=== PATIENT | female | born 1995 | race Two or more races ===

== ENCOUNTER 2023-01-12 10:28 | Inpatient (IN) ==
[2023-01-12] MEDS ORDERED: THIAMINE HCL 200 MG in SODIUM CHLORIDE 0.9% 50 ML IV STA (10:37)
[2023-01-12] MEDS ORDERED: SODIUM CHLORIDE 0.9% 1000ML 1,000 ML IV SCH (10:45)
[2023-01-12] MEDS ORDERED: LORazepam 2 MG/1 ML VIAL IM STA (10:55)
[2023-01-12] MEDS ORDERED: HALOPERIDOL LACTATE 5 MG/ML 1 ML VIAL IM STA (10:55)
--- NOTE | 2023-01-12 11:00 | Emergency Department Note ---
Impression & Plan Psychosis, Acute paranoia, Chronic alcohol abuse, Abnormal LFTs ED Provider Note NAME: CHAYA MINOR AGE: 27 SEX: F : 1995 ARRIVES VIA: Ambulance INFORMANT: Patient, the guards from the [facility] ED PROVIDER(S): Gui Braxton DO CHIEF COMPLAINT: Altered mental status HPI: The patient is a 27-year-old female who presented to the emergency department for an evaluation of altered mental status. The patient is currently residing at the [facility] in [place]. History was very difficult to obtain. The patient reportedly was awake alert and oriented to person place and situation 2 days ago. She started to have a decline in her mental status especially over the last 24 hours. She now is not able to answer questions. The patient is difficult to obtain history from. We obtained history using the head batcher but the head batcher states that the patient is not answering questions appropriately. She appears to be responding to internal stimuli. The patient does answer some questions in Portuguese but I am unsure if she is answering these questions appropriately. ROS: See above HPI for pertinent positives & negatives. A total of 10 systems reviewed and were otherwise negative. PAST MEDICAL HISTORY: See Below PAST SURGICAL HISTORY: See Below FAMILY HISTORY: See Below SOCIAL HISTORY: See Below HOME MEDICATIONS: See Below ALLERGIES: See Below VITALS: See Below PHYSICAL EXAMINATION: GENERAL: The patient is awake and looking around the room. She is speaking in her koi language. She appears very anxious. EYES: The conjunctivae are clear. The pupils are round and reactive. EARS, NOSE, MOUTH AND THROAT: The nose is without any evidence of any deformity. NECK: The neck is nontender and supple. RESPIRATORY: Normal respiratory effort is noted there is no evidence of wheezing rhonchi or rales CARDIOVASCULAR: Regular rate and rhythm noted there no murmurs rubs or gallops normal S1 normal S2. GASTROINTESTINAL: The abdomen is soft. Abdomen is nontender. MUSCULOSKELETAL/EXTREMITIES: There is no evidence of gross deformity full range of motion is noted in the hips and shoulders. SKIN: There is no obvious evidence of any rash. There are no petechiae, pallor or cyanosis noted. NEUROLOGIC: Patient is awake and according to head batcher oriented to person place but not time. Strength is symmetric patellar reflexes are 2+ bilaterally PSYCH: The patient makes poor eye contact. Her affect is very animated. MEDICAL DECISION MAKING: The patient is a 27-year-old female who presented to the emergency department with guards from the [facility] retirement. The patient has been in there facility for the last few days. Initially she was awake alert and following commands well. Over the course last 24 hours the patient has become very disoriented. She speaks very little Portuguese. When she presented to the emergency department the head batcher line was used and the patient was still not making sense to the head batcher. The head batcher described her as paranoid and questioning as if she was going to be sexually or physically assaulted. I reevaluated the patient after she was treated for her anxiety. We attempted to medically clear the patient although given the patient's history of alcohol abuse it was unclear if this was more of a functional versus organic cause for her presentation today. The patient was reevaluated and appeared to be making much more sense. She was evaluated again by the head batcher line she seemed improved but not completely at her baseline. For this reason I discussed her condition with the on-call [facility] hospitalist. They will evaluate the patient in the emergency department for further management and disposition. Triage Nursing notes reviewed. Prior medical records reviewed Vital Signs: reviewed and remarkable for no significant abnormalities Differential diagnosis: Mood disorder, infection, hypoglycemia, electrolyte abnormalities, cardiac sources, intracerebral event, toxicologic, trauma, neurologic, as well as other pathologies. ER treatment provided: See below Diagnostics interpreted by me: ECG: Normal sinus rhythm at 78 bpm. There is no ectopy. There was no acute ST segment abnormalities noted. No previous tracing was available. Cardiac Monitoring: An order was placed for continuous cardiac monitoring. The monitor shows a rate of 72 bpm with sinus rhythm. Laboratory studies: As stated above and show below. Imaging studies: See below. Radiographic imaging was reviewed by myself Consultation(s): I discussed this case with Dr. Yu who is on-call for the [facility] group. Past Med/Surg History Social History (Updated 01/12/23 @ 15:47 by Gui Braxton DO) Smoking Status: Unknown if ever smoked Hx Alcohol Use: Yes Communication Tools: IPad Feels Safe at Home: Declines to Answer Allergies Allergies Allergy/AdvReac Type Severity Reaction Status Date / Time No Known Allergies Allergy Unverified 01/12/23 10:48 Home Meds Home Medications Medication Instructions Recorded Confirmed No Known Home Medications 01/12/23 01/12/23 Results & Data (ED) Vital Signs Vital Signs - 24 hr 01/12/23 10:53 01/12/23 10:53 01/12/23 12:25 Temperature 37.2 C Temperature Source Axillary Pulse Rate 112 H Pulse Rate [Apical] 74 Respiratory Rate 22 16 Respiratory Effort / Characteristics Non-Labored Respiratory Depth Normal Respiratory Pattern Regular Blood Pressure 122/96 Blood Pressure [Left Arm] 116/73 Blood Pressure Mean 104 Blood Pressure Mean [Left Arm] 87 Pulse Oximetry 98 98 100 Oxygen Delivery Method Room Air Room Air Room Air Sepsis Recent Fever Within 48 Hours No Sepsis New/Unexplained Change in Mental Status Yes Sepsis Action Taken by Nursing Physician Notified 01/12/23 12:39 Temperature Temperature Source Pulse Rate 72 Pulse Rate [Apical] Respiratory Rate Respiratory Effort / Characteristics Respiratory Depth Respiratory Pattern Blood Pressure Blood Pressure [Left Arm] Blood Pressure Mean Blood Pressure Mean [Left Arm] Pulse Oximetry Oxygen Delivery Method Sepsis Recent Fever Within 48 Hours Sepsis New/Unexplained Change in Mental Status Sepsis Action Taken by [facility] Medications Current Medication List: was personally reviewed by me Laboratory Data Attestation: I reviewed the patient's lab results. 01/12/23 11:41 01/12/23 11:41 Lab Results 01/12/23 01/12/23 01/12/23 Range/Units 11:19 11:41 11:41 WBC 8.73 (4.8-10.8) K/ul RBC 3.92 L (4.20-5.40) M/uL Hgb 12.9 (12.0-16.0) g/dl Hct 37.9 (37.0-47.0) % MCV 96.7 (80.0-100.0) fL MCH 32.9 (25.0-34.0) pg MCHC 34.0 (32.0-36.0) g/dL RDW Std Deviation 48.2 H (36.4-46.3) fL RDW Coeff of Clari 13.6 (11.5-14.5) % Plt Count 131 (130-400) K/uL MPV 10.5 (9.4-12.4) fL Immature Gran % (Auto) 0.6 % Neut % (Auto) 80.9 % Lymph % (Auto) 11.7 % [place] % (Auto) 5.4 % Eos % (Auto) 0.5 % Baso % (Auto) 0.9 % Neut # (Auto) 7.07 H (1.40-6.50) K/uL Lymph # (Auto) 1.02 L (1.2-3.4) K/uL [place] # (Auto) 0.47 (0.11-0.59) K/uL Eos # (Auto) 0.04 (0-0.50) K/uL Baso # (Auto) 0.08 (0-0.2) K/uL Immature Gran # (Auto) 0.05 (0.01-0.20) K/uL PT 11.3 (9.0-12.0) Seconds INR 1.0 (0.9-1.1) APTT 24.8 (21.0-31.0) Seconds PTT Ratio 0.9 VBG pH (7.36-7.41) VBG pCO2 (38-50) mmHg VBG pO2 mmHg VBG HCO3 mmol/L VBG O2 Saturation % VBG Base Excess mEq/L Sodium (136-145) mmol/L Potassium (3.5-5.1) mmol/L Chloride (98-107) mmol/L Carbon Dioxide (21-32) mmol/L Anion Gap (3-11) BUN (6-23) mg/dl Creatinine (0.6-1.2) mg/dl Est Cr Clr Drug Dosing Est GFR ( Amer) ml/min Est GFR (Non-Af Amer) ml/min BUN/Creatinine Ratio (10-20) Glucose (70-99(Fasting)) mg/dl Calcium (8.6-10.3) mg/dl Magnesium (1.7-2.4) mg/dl Total Bilirubin (0.2-1.0) mg/dl Direct Bilirubin (0-0.2) mg/dl AST (13-39) U/L ALT (7-52) U/L Alkaline Phosphatase (34-104) U/L Ammonia (18-72) umol/L Total Creatine Kinase (26-192) U/L Troponin I High Sens (0-14) pg/ml Total Protein (6.0-8.3) gm/dl Albumin (3.4-5.0) gm/dl Globulin (2.5-4.0) gm/dl Albumin/Globulin Ratio (0.9-2) Lipase (11-82) U/L HCG, Qual (Negative) Salicylates (3.0-30) mg/dl Acetaminophen (10-30) ug/ml Ethyl Alcohol mg/dL (<10.0) mg/dl SARS-CoV-2, RNA, NAAT NEGATIVE (NEGATIVE) 01/12/23 01/12/23 01/12/23 Range/Units 11:41 11:41 11:41 WBC (4.8-10.8) K/ul RBC (4.20-5.40) M/uL Hgb (12.0-16.0) g/dl Hct (37.0-47.0) % MCV (80.0-100.0) fL MCH (25.0-34.0) pg MCHC (32.0-36.0) g/dL RDW Std Deviation (36.4-46.3) fL RDW Coeff of Clari (11.5-14.5) % Plt Count (130-400) K/uL MPV (9.4-12.4) fL Immature Gran % (Auto) % Neut % (Auto) % Lymph % (Auto) % [place] % (Auto) % Eos % (Auto) % Baso % (Auto) % Neut # (Auto) (1.40-6.50) K/uL Lymph # (Auto) (1.2-3.4) K/uL [place] # (Auto) (0.11-0.59) K/uL Eos # (Auto) (0-0.50) K/uL Baso # (Auto) (0-0.2) K/uL Immature Gran # (Auto) (0.01-0.20) K/uL PT (9.0-12.0) Seconds INR (0.9-1.1) APTT (21.0-31.0) Seconds PTT Ratio VBG pH (7.36-7.41) VBG pCO2 (38-50) mmHg VBG pO2 mmHg VBG HCO3 mmol/L VBG O2 Saturation % VBG Base Excess mEq/L Sodium 137 (136-145) mmol/L Potassium 3.4 L (3.5-5.1) mmol/L Chloride 100 (98-107) mmol/L Carbon Dioxide 22 (21-32) mmol/L Anion Gap 15 H (3-11) BUN 11 (6-23) mg/dl Creatinine 0.54 L (0.6-1.2) mg/dl Est Cr Clr Drug Dosing Not Reportable Est GFR ( Amer) 147.8 ml/min Est GFR (Non-Af Amer) 127.5 ml/min BUN/Creatinine Ratio 20.4 H (10-20) Glucose 79 (70-99(Fasting)) mg/dl Calcium 10.4 H (8.6-10.3) mg/dl Magnesium 2.0 (1.7-2.4) mg/dl Total Bilirubin 1.4 H (0.2-1.0) mg/dl Direct Bilirubin 0.4 H (0-0.2) mg/dl AST 568 H (13-39) U/L ALT 239 H (7-52) U/L Alkaline Phosphatase 180 H (34-104) U/L Ammonia 40.0 (18-72) umol/L Total Creatine Kinase 220 H (26-192) U/L Troponin I High Sens 3.6 (0-14) pg/ml Total Protein 8.7 H (6.0-8.3) gm/dl Albumin 4.9 (3.4-5.0) gm/dl Globulin 3.8 (2.5-4.0) gm/dl Albumin/Globulin Ratio 1.3 (0.9-2) Lipase 18 (11-82) U/L HCG, Qual (Negative) Salicylates < 3.0 L (3.0-30) mg/dl Acetaminophen < 3 L (10-30) ug/ml Ethyl Alcohol mg/dL (<10.0) mg/dl SARS-CoV-2, RNA, NAAT (NEGATIVE) 01/12/23 01/12/23 01/12/23 Range/Units 11:41 11:41 11:41 WBC (4.8-10.8) K/ul RBC (4.20-5.40) M/uL Hgb (12.0-16.0) g/dl Hct (37.0-47.0) % MCV (80.0-100.0) fL MCH (25.0-34.0) pg MCHC (32.0-36.0) g/dL RDW Std Deviation (36.4-46.3) fL RDW Coeff of Clari (11.5-14.5) % Plt Count (130-400) K/uL MPV (9.4-12.4) fL Immature Gran % (Auto) % Neut % (Auto) % Lymph % (Auto) % [place] % (Auto) % Eos % (Auto) % Baso % (Auto) % Neut # (Auto) (1.40-6.50) K/uL Lymph # (Auto) (1.2-3.4) K/uL [place] # (Auto) (0.11-0.59) K/uL Eos # (Auto) (0-0.50) K/uL Baso # (Auto) (0-0.2) K/uL Immature Gran # (Auto) (0.01-0.20) K/uL PT (9.0-12.0) Seconds INR (0.9-1.1) APTT (21.0-31.0) Seconds PTT Ratio VBG pH 7.38 (7.36-7.41) VBG pCO2 39 (38-50) mmHg VBG pO2 36 mmHg VBG HCO3 23 mmol/L VBG O2 Saturation < 60.0 % VBG Base Excess -1.8 mEq/L Sodium (136-145) mmol/L Potassium (3.5-5.1) mmol/L Chloride (98-107) mmol/L Carbon Dioxide (21-32) mmol/L Anion Gap (3-11) BUN (6-23) mg/dl Creatinine (0.6-1.2) mg/dl Est Cr Clr Drug Dosing Est GFR ( Amer) ml/min Est GFR (Non-Af Amer) ml/min BUN/Creatinine Ratio (10-20) Glucose (70-99(Fasting)) mg/dl Calcium (8.6-10.3) mg/dl Magnesium (1.7-2.4) mg/dl Total Bilirubin (0.2-1.0) mg/dl Direct Bilirubin (0-0.2) mg/dl AST (13-39) U/L ALT (7-52) U/L Alkaline Phosphatase (34-104) U/L Ammonia (18-72) umol/L Total Creatine Kinase (26-192) U/L Troponin I High Sens (0-14) pg/ml Total Protein (6.0-8.3) gm/dl Albumin (3.4-5.0) gm/dl Globulin (2.5-4.0) gm/dl Albumin/Globulin Ratio (0.9-2) Lipase (11-82) U/L HCG, Qual Negative (Negative) Salicylates (3.0-30) mg/dl Acetaminophen (10-30) ug/ml Ethyl Alcohol mg/dL < 10.0 (<10.0) mg/dl SARS-CoV-2, RNA, NAAT (NEGATIVE) Administered Medications Discontinued Medications Haloperidol Lactate (Haloperidol Lactate 5 Mg/Ml 1 Ml Vial) 5 mg IM NOW STA Stop: 01/12/23 10:56 Last Admin: 01/12/23 11:06 Dose: 5 mg Documented By: PARUL Sodium Chloride (Nss 1000ml) 1,000 mls @ 999 mls/hr IV .Q1H1M MARYLU Stop: 01/12/23 11:45 Last Infusion: 01/12/23 13:20 Dose: 0 mls/hr Documented By: Admin: 01/12/23 12:10 Dose: 999 mls/hr Documented By: ANTHONY Thiamine HCl 200 mg/ Sodium (Chloride) 52 mls @ 210 mls/hr IV NOW STA Stop: 01/12/23 10:51 Last Infusion: 01/12/23 13:05 Dose: 0 mls/hr Documented By: Admin: 01/12/23 12:10 Dose: 210 mls/hr Documented By: ANTHONY Lorazepam (Lorazepam 2 Mg/1 Ml Vial) 1 mg IM NOW STA Stop: 01/12/23 10:56 Last Admin: 01/12/23 11:06 Dose: 1 mg Documented By: PARUL Imaging Data My Impression: 1 view chest x-ray was obtained in the emergency department. My interpretation is no free air, no definite infiltrate, final report below. Radiologist's Impression: Chest X-Ray 01/12/23 10:37 SINGLE VIEW CHEST CLINICAL HISTORY: Change in mental status. FINDINGS: An AP, portable, upright chest radiograph is obtained. No prior studies are available for comparison at the time of dictation. The examination is degraded by portable technique and patient rotation. The cardiomediastinal silhouette is unremarkable. The lungs and pleural spaces are clear. No pneumothorax is seen. The bony thorax is grossly intact. IMPRESSION: No active disease in the chest. ACT 112: Negative or not required by law. Electronically signed by: Nigel Hadley M.D. 01/12/2023 1:[address] 01/12/23 10:37 CT head/brain wo con CLINICAL HISTORY: ams Technique: Contiguous axial CT images of the head were acquired from the base of the skull to the vertex without intravenous contrast administration. Images were viewed in brain, subdural and bone windows. Automated dose lowering techniques and/or adjustment according to patient size were utilized for this exam. Comparison: None available at the time of this dictation. Findings: The ventricles, basal cisterns, and cerebral sulci are normal. There is no acute intracranial hemorrhage or evidence of acute territorial infarction. Neither mass effect, shift of the midline structures, nor abnormal extra-axial fluid collections are shown. Imaged portions of the paranasal sinuses and mastoid air cells are clear. The orbits appear normal. Mild soft tissue prominence in the left occiput which may represent soft tissue contusion. Impression: No acute intracranial hemorrhage or skull fractures. Scalp swelling is seen in the left occiput. ACT 112: Negative or not required by law. Electronically signed by: Parish Cornelius M.D. 01/12/2023 12:16 PM Discharge Plan Visit Data Chief Complaint: Mental Health Evaluation Stated Complaint: HALLUCINATION, MHID, POSSIBLE ALCOHOL WITHDRAWL ED Provider: Gui Braxton Discharge Problem: Psychosis, Acute paranoia, Chronic alcohol abuse, Abnormal LFTs Patient Disposition: Being Evaluated by Hospitalist Forms Stand Alone Forms: [facility], Suicide Prevention Resources Prescriptions Prescriptions: No Action No Known Home Medications Referrals Referrals: PCP,NO [Primary Care Provider] -
[2023-01-12 11:57] LABS: Base Excess VBG -1.8 mEq/L; HCO3 VBG 23 mmol/L; Oxygen Saturation VBG < 60.0 %; PCO2 VBG 39 mmHg (38-50); PO2 VBG 36 mmHg; pH VBG 7.38 (7.36-7.41)
[2023-01-12 12:07] LABS: Basophils # (auto) 0.08 K/uL (0-0.2); Basophils % (auto) 0.9 %; Eosinophils # (auto) 0.04 K/uL (0-0.50); Eosinophils % (auto) 0.5 %; Hematocrit (blood only) 37.9 % (37.0-47.0); Hemoglobin 12.9 g/dl (12.0-16.0); Immature Granulocytes # (auto) 0.05 K/uL (0.01-0.20); Immature Granulocytes % (auto) 0.6 %; Lymphocytes # (auto) 1.02 K/uL (1.2-3.4); Lymphocytes % (auto) 11.7 %; Mean Corpuscular Hemoglobin 32.9 pg (25.0-34.0); Mean Corpuscular Volume 96.7 fL (80.0-100.0); Mean Platelet Volume 10.5 fL (9.4-12.4); Monocytes # (auto) 0.47 K/uL (0.11-0.59); Monocytes % (auto) 5.4 %; Neutrophils # (auto) 7.07 K/uL (1.40-6.50); Neutrophils % (auto) 80.9 %; Platelet Count 131 K/uL (130-400); RDW Coefficient of Variation 13.6 % (11.5-14.5); RDW Standard Deviation 48.2 fL (36.4-46.3); Red Blood Count 3.92 M/uL (4.20-5.40); White Blood Count 8.73 K/ul (4.8-10.8)
[2023-01-12 12:11] LABS: Albumin Level 4.9 gm/dl (3.4-5.0); Anion Gap 15 (3-11); Bilirubin Direct 0.4 mg/dl (0-0.2); Bilirubin,Total 1.4 mg/dl (0.2-1.0); Calcium 10.4 mg/dl (8.6-10.3); Carbon Dioxide 22 mmol/L (21-32); Chloride 100 mmol/L (98-107); Potassium 3.4 mmol/L (3.5-5.1); Sodium 137 mmol/L (136-145)
[2023-01-12 12:17] LABS: Acetaminophen < 3 ug/ml (10-30); Alanine Aminotransferase 239 U/L (7-52); Albumin Globulin Ratio 1.3 (0.9-2); Alkaline Phosphatase 180 U/L (34-104); Aspartate Aminotransferase 568 U/L (13-39); BUN Creatinine Ratio 20.4 (10-20); Blood Urea Nitrogen 11 mg/dl (6-23); Creatine Kinase 220 U/L (26-192); Est GFR (African American) 147.8 ml/min; Est GFR (Non-African American) 127.5 ml/min; Globulin 3.8 gm/dl (2.5-4.0); Glucose 79 mg/dl (70-99(Fasting)); Lipase 18 U/L (11-82); Salicylate < 3.0 mg/dl (3.0-30); Total Protein 8.7 gm/dl (6.0-8.3)
--- NOTE | 2023-01-12 12:17 | CT Scan Report ---
CT head/brain wo con CLINICAL HISTORY: ams Technique: Contiguous axial CT images of the head were acquired from the base of the skull to the jeff kirk without intravenous contrast administration. Images were viewed in brain, subdural and bone [facility]. Automated dose lowering techniques and/or adjustment according to patient size were utilized for this exam. Comparison: None available at the time of this dictation. Findings: The ventricles, basal cisterns, and cerebral sulci are normal. There is no acute intracranial hemorrh age or evidence of acute territorial infarction. Neither mass effect, shift of the midline structures , nor abnormal extra-axial fluid collections are shown. Imaged portions of the paranasal sinuses and mastoid air cells are clear. The orbits appear normal. Mild soft tissue prominence in the left occiput which may represent soft tissue contusion. Impression: No acute intracranial hemorrhage or skull fractures. Scalp swelling is seen in the left occiput. ACT 112: Negative or not required by law. Electronically signed by: Parish Cornelius M.D. 01/12/2023 12:16 PM
[2023-01-12 12:31] LABS: Pregnancy Test, Serum Negative (Negative)
[2023-01-12 12:34] LABS: Partial Thromboplastin Ratio 0.9; Partial Thromboplastin Time 24.8 Seconds (21.0-31.0); Prothrombin Time 11.3 Seconds (9.0-12.0)
[2023-01-12 12:48] LABS: Troponin I High Sensitivity 3.6 pg/ml (0-14)
--- NOTE | 2023-01-12 13:18 | XRay Report ---
SINGLE VIEW CHEST CLINICAL HISTORY: Change in mental status. FINDINGS: An AP, portable, upright chest radiograph is obtained. No prior studies are available for c omparison at the time of dictation. The examination is degraded by portable technique and patient rot ation. The cardiomediastinal silhouette is unremarkable. The lungs and pleural spaces are clear. No p neumothorax is seen. The bony thorax is grossly intact. IMPRESSION: No active disease in the chest. ACT 112: Negative or not required by law. Electronically signed by: Nigel Hadley M.D. 01/12/2023 1:17 PM
[2023-01-12] MEDS ORDERED: Ativan IV Alcohol Withdrawal--Active Protocol IV PRN (15:46)
[2023-01-12] MEDS ORDERED: LORazepam 2 MG/1 ML VIAL IV PRN ×3 (15:46)
--- NOTE | 2023-01-12 15:53 | History & Physical Report ---
Date of Service January 12, 2023 Assessment & Plan (1) Altered mental status: Plan: altered mental status in a 27 yo female with limited knowm past medical history. Currently confused, Speaks German. Given history of alcoholism, [facility], however her vitals no not appear to be showing signs of alcohol withdrawalm as she is not tacyhcardic or febrile. She could have an underlying psychiatric illness. For now will treat for alcohol withdrawal, if no improvement with benzos, may consider consulting psych and starting on antipsychotic. Patient will have guards in room, so no need for one to one. will obtain inflammatory markers to assess for any possible infection. UDS. evelyn be on valium 10 mg q6h, may cut back by 50% on 01/13, this will need to be reordered on 01/13 Patient also has an anion gap metabolic acidosis, will obtain a vbg: this was normal. (2) Chronic alcohol abuse: Plan: LFTs appear to be consistent with alcohol intake (3) Abnormal LFTs: Plan: will recheck LFTs in am as above. History of Present Illness Chief Complaint: confusion Primary Care Provider: NO PCP 27 [facility] female [facility] [place] presents to the ER with altered mental status. Patient is a poor historian and speaks very limited Greenlandic. She is from [facility] and speaks German. Patient however with use of photo print specialist service was not making any sense as per the interpretor, however, it was noted that she drinks about 5 beers daily. The interpretor also noted that she appeared to be hallucinating. She was in the [facility] and for the past 2 days, she appeared to be in her regular state of healthj. However today, she was confused, and brought to the hospital. Allergies Allergy/AdvReac Type Severity Reaction Status Date / Time No Known Allergies Allergy Unverified 01/12/23 10:48 Home Medications Medication Instructions Recorded Confirmed Type No Known Home Medications 01/12/23 01/12/23 History Past Med/Surg History Social History Smoking Status: Unknown if ever smoked Hx Alcohol Use: Yes Hx Substance Use: No Preferred Language: Other Communication Ability: Effective Communication Tools: IPad Drama Therapist Required: Yes Beliefs That Will Affect Care: None Current Living Situation: Other Current Living Situation Comment: [facility] Other Information That Helps Us Care for You: No Feels Safe at Home: Declines to Answer Assistive Devices: Hospital Bed Review of Systems Review of Systems: Unobtainable due to cognitive status Physical Exam Constitutional: WD/WN, vitals as above Eyes: jaundiced sclera/ horizontal nystagmus, patient making circular movement with her eyes (possible torsional nystagmus) ENMT: external ear and nose normal, oropharynx normal Neck: trachea midline, no thyromegaly Respiratory: normal respiratory effort, lungs clear to auscultation Cardiovascular: RRR, no murmur, no edema Gastrointestinal (Abdomen): normal bowel sounds, soft, nontender, no hepatosplenomegaly Musculoskeletal: no cyanosis or clubbing, extremities motor strength 5/5 (difficult to examine as she has handcuffs, but does move all extremities) Skin: no rashes, warm and dry Neurologic: awake Psychiatric: Orientation: alert Lymphatic: no cervical or axillary lymphadenopathy Results & Data Results & Data Vital Signs (Past 12 Hours) Vital Signs Temp Pulse Pulse Resp BP BP Pulse Ox 01/12/23 12:39 72 01/12/23 12:25 74 16 116/73 100 01/12/23 10:53 98 01/12/23 10:53 37.2 C 112 H 22 122/96 98 O2 Del Method 01/12/23 12:39 01/12/23 12:25 Room Air 01/12/23 10:53 Room Air 01/12/23 10:53 Room Air PG Care Time/CCT Total # of Minutes Spent Total Time Spent with Patient: Total time spent is greater than 50% in coordination of care (as documented) at patient's floor/unit and/or counseling patient: Coding Level of Care Code 06878 INT INP/OBS CARE 3/75MIN Diagnoses Altered mental status R41.82 Chronic alcohol abuse F10.10 Abnormal LFTs R79.89
--- NOTE | 2023-01-12 17:08 | Electrocardiogram Report ---
Test Reason : Blood Pressure : / mmHG Vent. Rate : 078 BPM Atrial Rate : 078 BPM P-R Int : 150 ms QRS Dur : 080 ms QT Int : 438 ms P-R-T Axes : 056 081 066 degrees QTc Int : 499 ms Normal sinus rhythm with sinus arrhythmia Prolonged QT Abnormal ECG No previous ECGs available Confirmed by Eris Moss ([id number]) on 01/12/2023 5:07:58 PM Referred By: Confirmed By:Huy Moss
[2023-01-12] MEDS: LACTATED RINGER'S 1,000 ML IV SCH (17:37)
[2023-01-12] MEDS: DIAZEPAM IV SCH (17:38)
[2023-01-12 22:49] LABS: Base Excess VBG -3.6 mEq/L; HCO3 VBG 21 mmol/L; Oxygen Saturation VBG 92.9 %; PCO2 VBG 34 mmHg (38-50); PO2 VBG 66 mmHg; pH VBG 7.39 (7.36-7.41)
[2023-01-12 23:10] LABS: Anion Gap 13 (3-11); BUN Creatinine Ratio 15.9 (10-20); Blood Urea Nitrogen 7 mg/dl (6-23); Calcium 9.1 mg/dl (8.6-10.3); Carbon Dioxide 19 mmol/L (21-32); Chloride 106 mmol/L (98-107); Est GFR (African American) > 150.0 ml/min; Est GFR (Non-African American) 136.4 ml/min; Glucose 68 mg/dl (70-99(Fasting)); Potassium 3.3 mmol/L (3.5-5.1); Sodium 138 mmol/L (136-145)
[2023-01-13] MEDS: DIAZEPAM IV SCH ×3 (00:20→12:05)
[2023-01-13 00:38] LABS: Appearance Urine Cloudy (Clear); Bacteria Urine Automated 4+ (Negative); Bilirubin Urine Negative (Negative); Blood Urine Negative (Negative); Color Urine Orange; Glucose Urine UA Negative (Negative); Ketones Urine 3+ (Negative); Leukocyte Esterase Urine 1+ (Negative); Nitrite Urine Positive (Negative); Protein Urine 1+ (Negative); RBC Urine Automated 0-4 /hpf (0-4); Specific Gravity Urine 1.029 (1.000-1.030); Urobilinogen Urine Negative (Negative); WBC Urine Automated >30 /hpf (0-5)
[2023-01-13 01:00] LABS: Amphetamines+Metham, Urine Neg (Neg); Barbiturates, Urine Neg (Neg); Benzodiazepine, Urine Pos (Neg); Cocaine, Urine Neg (Neg); MDMA (Ecstacy), Urine Neg (Neg); Methadone, Urine Neg (Neg); Opiate, Urine Neg (Neg); Phencyclidine, Urine Neg (Neg)
[2023-01-13] MEDS: LACTATED RINGER'S 1,000 ML IV SCH (05:40)
[2023-01-13 07:01] LABS: Base Excess VBG -3.6 mEq/L; HCO3 VBG 22 mmol/L; Oxygen Saturation VBG 83.6 %; PCO2 VBG 38 mmHg (38-50); PO2 VBG 52 mmHg; pH VBG 7.36 (7.36-7.41)
[2023-01-13 07:08] LABS: Hematocrit (blood only) 36.3 % (37.0-47.0); Hemoglobin 12.1 g/dl (12.0-16.0); Mean Corpuscular Hemoglobin 33.2 pg (25.0-34.0); Mean Corpuscular Hgb Conc 33.3 g/dL (32.0-36.0); Mean Corpuscular Volume 99.5 fL (80.0-100.0); Mean Platelet Volume 10.7 fL (9.4-12.4); Platelet Count 111 K/uL (130-400); RDW Coefficient of Variation 13.6 % (11.5-14.5); Red Blood Count 3.65 M/uL (4.20-5.40); White Blood Count 5.35 K/ul (4.8-10.8)
[2023-01-13 07:25] LABS: Alanine Aminotransferase 224 U/L (7-52); Albumin Level 3.8 gm/dl (3.4-5.0); Alkaline Phosphatase 146 U/L (34-104); Anion Gap 12 (3-11); Aspartate Aminotransferase 476 U/L (13-39); BUN Creatinine Ratio 12.5 (10-20); Bilirubin Direct 0.3 mg/dl (0-0.2); Bilirubin,Total 1.4 mg/dl (0.2-1.0); Blood Urea Nitrogen 5 mg/dl (6-23); C Reactive Protein 1.18 mg/dl (0-0.5); Calcium 9.2 mg/dl (8.6-10.3); Carbon Dioxide 20 mmol/L (21-32); Chloride 106 mmol/L (98-107); Est GFR (African American) > 150.0 ml/min; Est GFR (Non-African American) 140.8 ml/min; Glucose 64 mg/dl (70-99(Fasting)); Potassium 3.4 mmol/L (3.5-5.1); Sodium 138 mmol/L (136-145)
[2023-01-13] MEDS: THIAMINE HCL 100 MG in SYRINGE 9 ML IV SCH (08:22)
--- NOTE | 2023-01-13 14:02 | Psychiatric Consultation ---
Date of Consultation January 13, 2023 Impression / Recommendations Impression 27 yo [place] woman currently at an immigration intermediate center admitted medically for altered mental status. Description of rapid change in mental status after admission to controlled environment, report of significant alcohol use history prior to admission, electrolyte changes consistent with poor nutritional intake, reports of visual hallucinations, tremors, possible jaundice and significantly elevated AST, more than double elevated ALT, all fits with clinical picture of alcohol use disorder with likely withdrawal with possible DTs leading to hallucinations. Suspect her report of stopping alcohol on 12/31 is incorrect and rather likely was drinking until going into intermediate center on 01/08 for which timing of alcohol withdrawal symptoms fits with time course of her symptoms. Infectious or other medical cause also possible but rapid symptom improvement would be less likely in these cases. Primary psychiatric condition possible, such as fern, but unlikely given rapid improvement over the last 24 hours and no signs of any current psychiatric symptoms on assessment today. Trauma/stress induced presentation also possible but specificity of visual hallucinations of bugs and rapid improvement makes this much less likely. 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 Psychiatry consulted for recommendations regarding any possible underlying psychiatric symptoms or conditions. Chief Complaint "I think it was because I was in quarantine and lonely, I've never been away from family before". History of Present Illness Yanna Boothe was brought to the hospital from an immigration intermediate center after arriving there on 01/08/2023 with visible bruising on her arms and then showing symptoms of altered mental status starting on 01/12/2023 including "confusion, hallucinations of seeing family members and bugs in her room and on her back, hiding under things, tremors, not sleeping for two days, not eating for three meals, jaundiced and dilated pupils". She reported to intermediate center medical provider that she drank 1 pound of alcohol per day, told hospitalist 5 beers per day and with me reports drinking 2 beers and 3 shots of liquor daily but that she stopped all alcohol on 12/31/2022. 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 She denies any current psychiatric symptoms but reports thinking someone was calling her name or coming to her cell and then no one was there when she turned her head. She denies any other recent psychiatric symptoms. Denies depression, nor anxiety nor recent sleep or appetite changes. Does report feeling very lonely and scared after being brought to the intermediate center as she had to be in quarantine for 10 days and has never been away from family or all by herself like that before. She denies any history of psychiatric symptoms nor diagnoses nor medications nor family psychiatric history. Denies SI. Denies any current AH or VH. Was fully oriented except to city but knew we were in [place]. All her responses were logical and the machine maintenance mechanic was able to understand everything marcus t she shared. She denied any other concerns or questions. Allergies Allergy/AdvReac Type Severity Reaction Status Date / Time No Known Allergies Allergy Unverified 01/12/23 10:48 Home Medications Medication Instructions Recorded Confirmed Type No Known Home Medications 01/12/23 01/12/23 History Patient History Social History Smoking Status: Unknown if ever smoked Hx Alcohol Use: Yes Hx Substance Use: No Preferred Language: Other Communication Ability: Unable Communication Tools: IPad Black Top Machine Operator Required: Yes Beliefs That Will Affect Care: None Current Living Situation: Other Current Living Situation Comment: [facility] Other Information That Helps Us Care for You: No Feels Safe at Home: Declines to Answer Assistive Devices: None Physical Exam Psychiatric: Orientation: alert and oriented x 3 Apperance: appropriately dressed and appropriately groomed Eye Contact: good eye contact Motor Behavior: no abnormal motor movements Speech: normal rate/rhythm/volume of speech Affect: + constricted affect Mood: no depressed mood and no anxious mood Thought Process: linear/logical thought process Thought Content: reality based without delusions Suicidal Thoughts: denies suicidal thoughts Homicidal Thoughts: denies homicidal thoughts Hallucinations: no auditory hallucinations and no visual hallucinations Cognition: recent memory grossly intact, remote memory grossly intact, attention grossly intact and language grossly intact Estimated Intelligence: consistent with education level Insight: + fair insight Judgment: + fair judgement Vital Signs (Past 24 Hours): Last Vital Signs Temp 36.8 C 01/13/23 11:02 Pulse 72 01/13/23 11:02 Resp 17 01/13/23 11:02 BP 106/72 01/13/23 11:02 Pulse Ox 98 01/13/23 11:02 O2 Del Method Room Air 01/13/23 11:02 Review of Systems All systems reviewed & are unremarkable except as noted in HPI & below Results & Data (PSY) Laboratory Results low K+, low glucose, very elevated AST and ALT, urine ketones Diagnostic Findings normal head CT normal CXR Medications Administered Thiamine HCl 100 mg/ Syringe 10 mls @ 2 mls/min IV QAM MARYLU Stop: 02/12/23 08:59 Last Admin: 01/13/23 08:22 Dose: 2 mls/min Documented By: GRACE Lactated Ringer's (Lr) 1,000 mls @ 80 mls/hr IV .[id number] MARYLU Stop: 01/13/23 16:59 Last Admin: 01/13/23 05:40 Dose: 80 mls/hr Documented By: Infusion: 01/13/23 05:40 Dose: 80 mls/hr Documented By: Admin: 01/12/23 17:37 Dose: 80 mls/hr Documented By: ADARSH Coding Level of Care Code 18934 IN/OBS CONSULT LVL 4,60M Diagnoses Altered mental status R41.82 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
[2023-01-13] MEDS ORDERED: POTASSIUM CHLORIDE CRTAB 20 MEQ TABCR PO STA (21:53)
--- NOTE | 2023-01-13 21:53 | Hospitalist Progress Note ---
Date of Service January 13, 2023 Assessment & Plan (1) Altered mental status: Plan: Altered mental status in a 27 yo female with limited known past medical history. Patient now denies any signifcant PMH. Speaks Hebrew, and used protective officer service. Last drink was January 03, 9 days prior to admission. Though majority of delirium tremens occurs during first 96 hours, this can occur up to 10 days later. Alcohol withdrawal could have been the main culprit. Interesting enough, her vitals did not appear to be tachycardia, or hypertensive. Doubt UTI, despite having abnormal UA, patient is now oriented and denies any urinary symptoms. Given her improvement without the aide of antibiotics, patient will be given the diagnosis of asymptomatic bacteruria and will not be given antibiotics. Patient denies psychiatric history, consulted psych. Patient also apppears to have latent TB, as her [facility], but her chest x ray was negative. No need for isolation. UDS IS NEGATIVE. evelyn TITRATE valium 10 mg q6h MORE AGGRESSIVELY PATIENT APPEARS TO HAVE IMPROVED AND THE KNOWLEDGE THAT HER LAST DRINK WAS 10 DAYS AGO. 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 as above. Admission and Anticipated Discharge Date Admission Date: January 12, 2023 Subjective Patient reports feeling better. She is able to provide a history and knows she is in the [facility]. She reports drinking alcohol 2-3 shots of hard liquor accompanied by 2-3 beers a day. Her last drink was January 03. SHE HAS BEEN IN THE [facility]SING HOME [facility] SINCE December. She apears to have worsening confusion and the guards in the room state that she urinated on herself the day priro to coming to the hospital. Patient reports that she denies any dysuria, incontinence, urinary urgency or the sensation of having difficulty emptying the bladder. PATIENT DENIES ANY SICK CONTACTS. Review of Systems Review of Systems: All systems reviewed & are unremarkable except as noted in HPI & below Physical Exam Constitutional: WD/WN, vitals as above ENMT: external ear and nose normal, oropharynx normal Neck: trachea midline, no thyromegaly Respiratory: normal respiratory effort, lungs clear to auscultation Cardiovascular: RRR, no murmur, no edema Gastrointestinal (Abdomen): normal bowel sounds, soft, nontender, no hepatosplenomegaly Musculoskeletal: no cyanosis or clubbing, extremities motor strength 5/5 (difficult to examine as she has handcuffs, but does move all extremities) Skin: no rashes, warm and dry Neurologic: awake Psychiatric: Orientation: alert Lymphatic: no cervical or axillary lymphadenopathy Results & Data Results & Data Vital Signs (Past 12 Hours) Vital Signs Temp Pulse Pulse Resp BP Pulse Ox O2 Del Method 01/13/23 19:06 37.0 C 75 18 106/67 97 Room Air 01/13/23 15:55 67 01/13/23 15:10 36.9 C 67 16 106/72 98 Room Air 01/13/23 11:02 36.8 C 72 17 106/72 98 Room Air PG Care Time/CCT Total # of Minutes Spent Total Time Spent with Patient: Total time spent is greater than 50% in coordination of care (as documented) at patient's floor/unit and/or counseling patient: Coding Level of Care Code 17544 SUB INP/OBS CARE 3/50MIN Diagnoses Altered mental status R41.82 Chronic alcohol abuse F10.10 Abnormal LFTs R79.89
[2023-01-13] MEDS: diazePAM 5 MG TABLET PO SCH (22:49)
[2023-01-14 06:57] LABS: Hematocrit (blood only) 34.9 % (37.0-47.0); Hemoglobin 11.9 g/dl (12.0-16.0); Mean Corpuscular Hemoglobin 33.1 pg (25.0-34.0); Mean Corpuscular Hgb Conc 34.1 g/dL (32.0-36.0); Mean Corpuscular Volume 96.9 fL (80.0-100.0); Mean Platelet Volume 10.5 fL (9.4-12.4); Platelet Count 147 K/uL (130-400); RDW Coefficient of Variation 13.2 % (11.5-14.5); RDW Standard Deviation 47.7 fL (36.4-46.3); White Blood Count 4.59 K/ul (4.8-10.8)
[2023-01-14 07:15] LABS: Alanine Aminotransferase 226 U/L (7-52); Albumin Level 3.9 gm/dl (3.4-5.0); Alkaline Phosphatase 151 U/L (34-104); Anion Gap 12 (3-11); Aspartate Aminotransferase 342 U/L (13-39); BUN Creatinine Ratio 12.1 (10-20); Bilirubin Direct 0.2 mg/dl (0-0.2); Blood Urea Nitrogen 4 mg/dl (6-23); Calcium 9.4 mg/dl (8.6-10.3); Carbon Dioxide 22 mmol/L (21-32); Chloride 104 mmol/L (98-107); Est GFR (African American) > 150.0 ml/min; Glucose 74 mg/dl (70-99(Fasting)); Potassium 3.5 mmol/L (3.5-5.1); Sodium 138 mmol/L (136-145); Total Protein 7.1 gm/dl (6.0-8.3)
[2023-01-14] MEDS ORDERED: cefTRIAXone SODIUM 1,000 MG in DEXTROSE 5% AD-VAN 50 ML IV STA (08:07)
[2023-01-14] MEDS: THIAMINE HCL 100 MG in SYRINGE 9 ML IV SCH (08:53)
[2023-01-14] MEDS: diazePAM 5 MG TABLET PO SCH (08:53)
--- NOTE | 2023-01-14 11:34 | Discharge Summary ---
Date of Service January 14, 2023 Admission HPI Per Admitting Provider 27 yo female from [facility] from [place] presents to the ER with altered mental status. Patient is a poor historian and speaks very limited Fijian. She is from [place] and speaks Georgian. Patient however with use of manager technical training service was not making any sense as per the interpretor, however, it was noted that she drinks about 5 beers daily. The interpretor also noted that she appeared to be hallucinating. She was in the prison center and for the past 2 days, she appeared to be in her regular state of healthj. However today, she was confused, and brought to the hospital. Principal Diagnosis Gram-negative urinary tract information, acute metabolic and toxic encephalopathy, alcohol intoxication with alcohol withdraw Discharge Exam General-alert and oriented x3, no fevers, no chills HEENT-head atraumatic and normocephalic, pupils equal and reactive to light, extraocular muscles intact Neck-no lymphadenopathy or thyromegaly, trachea midline Chest-clear to auscultation percussion. No rales wheezing or rhonchi Cardiac-regular rate and rhythm, normal S1 and S2 Abdomen-normal bowel sounds, nontender, no hepatosplenomegaly Extremities-no cyanosis, clubbing, or edema Neuro-cranial nerves II through XII intact, motor and sensory function within normal limits, strength symmetrical , no focal deficits Psych-normal affect, normal mood Discharge Data Allergies Allergy/AdvReac Type Severity Reaction Status Date / Time No Known Allergies Allergy Unverified 01/12/23 10:48 Consultations 01/12/23 15:43 ED Decision to Admit Stat 01/13/23 11:19 Consult Psychiatry Routine Ordered Studies 01/12/23 10:37 CT head/brain wo con Stat Hospital Course (1) Altered mental status: Probably from combined metabolic and toxic encephalopathy. Alcohol withdrawal and UTI were probably playing a role in altered mental status. Now resolved (2) Chronic alcohol abuse: Counseled to stop drinking. (3) Abnormal LFTs: Due to alcoholism (4) Urinary tract infection: Gram-negative's isolated. She received Rocephin while hospitalized. Will discharge on oral Keflex Plan Discharge back to [facility] today, January 14 on a Valium tapering dose along with oral cephalexin for several more days Total Time Total Time Spent Total Time Spent (In Minutes): 45 minutes Discharge Plan Discharge Items Patient Disposition: Correctional Facility Reason For Visit: CONFUSION Discharge Diagnosis: Combined metabolic and toxic encephalopathy, alcohol withdrawal, UTI Activity: Resume your previous activity Non-emergency contact: Primary Care Provider Call non-emergency contact if: you have any medication questions and your symptoms worsen Follow-up/Referrals: PCP,NO [Primary Care Provider] - Diet: Regular Addtl Attending Provider Instructions: Take cephalexin antibiotic for 3 more days. Take Valium in a tapering dose fashion until weaned off Pending Studies at Discharge: Yes Studies:: Identification of gram-negative eddie in the urine Stand-Alone Forms: My [facility] Skilled Items Patient informed of condition?: Yes Discharge Level of Care: Other Communicable Disease: No Discharge Prognosis: Stable Lines: None Urinary Catheter: No Medications and DC Order Prescriptions: New cephalexin 250 mg capsule 250 mg PO TID Qty: 10 0RF diazepam 2 mg tablet See Rx Instructions .ROUTE .COMPLEX Qty: 12 0RF Rx Instructions: 2 mg orally 3 times a day for 2 days, then 2 mg twice a day for 2 days, then 2 mg once a day for 2 days, then stop No Action No Known Home Medications Discharge Orders: Discharge Order (Routine); Ordered 01/14/23 Ordered By: Peter Johnston Admission Data Admit Date/Time: 01/12/23 15:53 Attending Provider: Peter Johnston Admit Provider: Pratik Yu Primary Care Provider: PCP,NO Other Providers: Pratik Yu ; Radha Mederos ; Kristi Layne ; Hunter Araujo Coding Level of Care Code 14441 INP/OBS DISCH >30 MIN Diagnoses Altered mental status R41.82 Chronic alcohol abuse F10.10 Abnormal LFTs R79.89 Urinary tract infection N39.0
[2023-01-14 12:27] LABS: HBSAG NON-REACTIVE (NON-REACTIVE); Hepatitis A Antibody IgM NON-REACTIVE (NON-REACTIVE); Hepatitis B Core Antibody IgM NON-REACTIVE (NON-REACTIVE)
[2023-01-14 14:17] LABS: 7-Aminoclonaz, Confirm NEGATIVE ng/mL (<25); Hydro-Alp Ur, GC/MS NEGATIVE ng/mL (<25); Hydroxyethylflurazepam, Conf NEGATIVE ng/mL (<50); Hydroxymidazolam Ur, GC/MS NEGATIVE ng/mL (<50); Hydroxytriazolam NEGATIVE ng/mL (<50); Lorazepam, Ur GC/MS 809 ng/mL (<50); Nordiazepam, Confirm 194 ng/mL (<50); Oxazepam Ur, GC/MS NEGATIVE ng/mL (<50); Temazepam, Confirm 206 ng/mL (<50)
[2023-01-15] MEDS ORDERED: cefTRIAXone SODIUM 1,000 MG in DEXTROSE 5% AD-VAN 50 ML IV SCH (08:15)
== END 2023-01-14 12:51 | DRG 689 ==
LOC: ED 10:28 → SUATTDRO 15:53 → 2E 15:53